=== PATIENT | female | born 1985 | race Two or more races ===

== ENCOUNTER 2019-12-26 18:45 | Emergency (ER) | payer MEDICAID ==
[~2019-12-26] VITALS: Ht 154.9 cm; Wt 72.6 kg
--- NOTE | 2019-12-26 19:08 | NUR ---
L&D TO BE NOTIFIED ONCE IN ROOM.
[2019-12-26 19:28] LABS: BASOPHILS % (AUTO) 0 % (0-1); EOSINOPHILS % (AUTO) 0 % (1-7); LYMPHOCYTES % (AUTO) 33 % (22-44); MEAN CORPUSCULAR HEMOGLOBIN 30.8 pg (27.0-34.8); MEAN CORPUSCULAR HGB CONC 34.4 g/dL (32.4-35.8); MEAN PLATELET VOLUME 8.7 fL (7.4-10.4); MONOCYTES % (AUTO) 10 % (2-9); NEUTROPHILS % (AUTO) 56 % (42-75); PLATELET COUNT 167 x10^3/uL (130-400); RED BLOOD COUNT 4.38 x10^6/uL (3.82-5.3)
[2019-12-26 19:33] LABS: ANION GAP 7 mmol/L (5-15); CALCIUM 8.9 mg/dL (8.5-10.1); CHLORIDE 104 mmol/L (98-107)
[2019-12-26 19:36] LABS: MD NO
--- NOTE | 2019-12-26 19:49 | NUR ---
CALLED L&D TO GET FHT
[2019-12-26 19:51] LABS: CREATININE 0.53 mg/dL (0.55-1.02)
--- NOTE | 2019-12-26 20:00 | NUR ---
L&D RN AT BEDSIDE FOR EVAL
--- NOTE | 2019-12-26 20:04 | NUR ---
"BEEN VOMITING SINCE WEDNESDAY". HAD A FEVER OF 101 ON WEDNESDAY, THIS AM IT WAS 100.9, CLAIMS SHE HAS BEEN AROUND SOMEONE WHO IS POSITIVE WITH COVID-19. PT 22 WEEKS , THIS IS PTS [facility] , 4 CHILDREN.
--- NOTE | 2019-12-26 21:00 | NUR ---
pt resting comfortably. no needs at this time
[2019-12-26 21:43] VITALS: BP 101/61
== END 2019-12-26 21:59 | disposition home or self-care (01) ==
LOC: ED 21:01
DX: O26.892 Other specified pregnancy related conditions, second trimester (principal); B34.9 Viral infection, unspecified; Z3A.22 22 weeks gestation of pregnancy
CPT/HCPCS: 36415; 76815; 80048; 82040; 84702; 85025; 99284

== ENCOUNTER 2020-01-09 10:41 | Outpatient (CLI) | payer MEDICAID ==
[~2020-01-09] VITALS: Ht 154.9 cm; Wt 75.0 kg
[2020-01-09 11:47] VITALS: BP 101/65
[2020-01-09 11:59] LABS: MICROSCOPIC AUTO
[2020-01-09 12:05] LABS: BASOPHILS % (AUTO) 1 % (0-1); EOSINOPHILS % (AUTO) 2 % (1-7); LYMPHOCYTES % (AUTO) 27 % (22-44); MD NO; MEAN CORPUSCULAR HEMOGLOBIN 30.3 pg (27.0-34.8); MEAN CORPUSCULAR HGB CONC 33.7 g/dL (32.4-35.8); MEAN PLATELET VOLUME 7.9 fL (7.4-10.4); MONOCYTES % (AUTO) 6 % (2-9); NEUTROPHILS % (AUTO) 65 % (42-75); PLATELET COUNT 416 x10^3/uL (130-400); RED BLOOD COUNT 4.04 x10^6/uL (3.82-5.3); RED CELL DISTRIBUTION WIDTH 12.9 % (9.6-15.2)
== END 2020-01-09 13:55 | disposition home or self-care (01) ==
LOC: LDOP 10:41
PROVIDERS: ATTEND Obstetrics & Gynecology
DX: O42.912 Preterm premature rupture of membranes, unspecified as to length of time between rupture and onset of labor, second trimester (principal); Z3A.23 23 weeks gestation of pregnancy
CPT/HCPCS: 36415; 81001; 84112; 85025; 87086; 99211; G0463

== ENCOUNTER 2020-01-24 10:13 | Outpatient (CLI) | payer MEDICAID ==
[~2020-01-24] VITALS: Ht 154.9 cm; Wt 75.0 kg
[2020-01-24 11:04] VITALS: BP 97/62
[2020-01-24] MEDS ORDERED: PREN1TAB10 PO (11:17)
== END 2020-01-24 11:30 | disposition home or self-care (01) ==
LOC: LDOP 10:13
PROVIDERS: ATTEND Obstetrics & Gynecology
DX: O46.92 Antepartum hemorrhage, unspecified, second trimester (principal); Z3A.25 25 weeks gestation of pregnancy
CPT/HCPCS: 99211; G0463

== ENCOUNTER 2020-04-02 16:40 | Inpatient (IN) | payer MEDICAID ==
[~2020-04-02] VITALS: Ht 154.9 cm; Wt 82.7 kg
[~2020-04-02 16:40] MED LIST: PREN1TAB10 PO
[2020-04-02] MEDS ORDERED: BETAMETHASONE 6 MG/ML, 5ML IM ONE (16:56)
[2020-04-02] MEDS ORDERED: FENTANYL PF 100 MCG/2ML IVPush PRN (17:00)
[2020-04-02] MEDS ORDERED: FENTANYL PF 100 MCG/2ML IV PRN (17:00)
[2020-04-02] MEDS ORDERED: SODIUM CITRATE/CITRIC ACID 30 ML UDC PO PRN (17:00)
[2020-04-02] MEDS ORDERED: METOCLOPRAMIDE 5 MG/ML, 2ML IVPush PRN (17:00)
[2020-04-02] MEDS ORDERED: TERBUTALINE 1 MG/ML, 1ML SQ PRN (17:00)
[2020-04-02] MEDS: D5%-LACTATED RINGERS 1,000 ML IV SCH (17:00)
[2020-04-02] MEDS ORDERED: TERBUTALINE 1 MG/ML, 1ML IVPush PRN (17:00)
[2020-04-02] MEDS ORDERED: ONDANSETRON 2MG/ML, 2ML IVPush PRN (17:00)
[2020-04-02] MEDS ORDERED: SODIUM CHLORIDE FLUSH 10ML SYR IVF PRN (17:00)
[2020-04-02] MEDS: LACTATED RINGERS 1,000 ML IV SCH (17:00)
[2020-04-02 17:39] LABS: BASOPHILS % (AUTO) 1 % (0-1); EOSINOPHILS % (AUTO) 1 % (1-7); LYMPHOCYTES % (AUTO) 29 % (22-44); MEAN CORPUSCULAR HEMOGLOBIN 30.9 pg (27.0-34.8); MEAN CORPUSCULAR HGB CONC 33.8 g/dL (32.4-35.8); MEAN PLATELET VOLUME 9.5 fL (7.4-10.4); MONOCYTES % (AUTO) 7 % (2-9); NEUTROPHILS % (AUTO) 63 % (42-75); PLATELET COUNT 294 x10^3/uL (130-400); RED BLOOD COUNT 3.97 x10^6/uL (3.82-5.3); RED CELL DISTRIBUTION WIDTH 14.3 % (9.6-15.2)
[2020-04-02 17:43] LABS: MD NO
[2020-04-02] MEDS ORDERED: BUTA1CAP59 PO (17:53)
[2020-04-02] MEDS ORDERED: ACETAMINOPHEN 325 MG TABLET PO PRN (18:00)
[2020-04-02] MEDS ORDERED: BUTALB/APAP/CAFFEINE 50MG/325MG/40MG PO PRN (18:00)
[2020-04-03] MEDS: D5%-LACTATED RINGERS 1,000 ML IV SCH (01:00)
[2020-04-03] MEDS ORDERED: BETAMETHASONE 6 MG/ML, 5ML IM ONE ×2 (09:00→17:00)
[2020-04-03] MEDS ORDERED: PRENATAL VIT/IRON/FA 1 EACH TABLET ONE (09:19)
[2020-04-03] MEDS ORDERED: DOCUSATE 100 MG CAPSULE ONE (09:20)
[2020-04-03] MEDS: DOCUSATE 100 MG CAPSULE PO SCH ×2 (09:21→21:00)
[2020-04-03] MEDS: PRENATAL VIT/IRON/FA 1 EACH TABLET PO SCH (09:22)
[2020-04-03] MEDS ORDERED: BUTALB/APAP/CAFFEINE 50MG/325MG/40MG ONE (16:44)
[2020-04-03] MEDS ORDERED: NEWBORN KIT ONE (23:41)
[2020-04-04] MEDS: PRENATAL VIT/IRON/FA 1 EACH TABLET PO SCH (09:00)
[2020-04-04] MEDS: DOCUSATE 100 MG CAPSULE PO SCH (09:00)
[2020-04-04] MEDS ORDERED: OXYTOCIN 30U/ 0.9% NaCL 500ML 500 ML ONE ×2 (10:18→20:13)
[2020-04-04] MEDS ORDERED: LIDOCAINE 1%, 20ML ONE (10:18)
[2020-04-04] MEDS ORDERED: MISOPROSTOL 200 MCG TABLET ONE (10:18)
[2020-04-04] MEDS ORDERED: MISOPROSTOL 25 MCG TABLET ONE (10:35)
[2020-04-04] MEDS ORDERED: MISOPROSTOL 25 MCG TABLET VG PRN (11:30)
[2020-04-04] MEDS ORDERED: SODIUM CITRATE/CITRIC ACID 15 ML UDC ONE (16:27)
[2020-04-04] MEDS ORDERED: METOCLOPRAMIDE 5 MG/ML, 2ML ONE (16:27)
[2020-04-04] MEDS ORDERED: IBUPROFEN 800 MG TABLET ONE (19:13)
[2020-04-04] MEDS: IBUPROFEN 800 MG TABLET PO PRN (19:14)
[2020-04-04] MEDS: LACTATED RINGERS 1,000 ML IV SCH (19:19)
[2020-04-04] MEDS: OXYTOCIN 30U/ 0.9% NaCL 500ML 500 ML IV SCH (19:20)
[2020-04-04] MEDS ORDERED: OXYTOCIN 10 UNITS/ML, 1ML IM PRN (19:30)
[2020-04-04] MEDS ORDERED: MAGNESIUM HYDROXIDE 8%, 30ML UDC PO PRN (19:30)
[2020-04-04] MEDS ORDERED: CALCIUM CARBONATE 500 MG TAB.CHEW PO PRN (19:30)
[2020-04-04] MEDS ORDERED: ACETAMINOPHEN 325 MG TABLET PO PRN ×2 (19:30)
[2020-04-04] MEDS ORDERED: ONDANSETRON 2MG/ML, 2ML IV PRN (19:30)
[2020-04-04] MEDS ORDERED: METHYLERGONOVINE 0.2 MG/ML IM PRN (19:30)
[2020-04-04] MEDS ORDERED: OXYcodone IR 5MG TABLET PO PRN (19:30)
[2020-04-04] MEDS ORDERED: SIMETHICONE 80 MG CHEW TAB PO PRN (19:30)
[2020-04-04] MEDS ORDERED: DOCUSATE 100 MG CAPSULE PO PRN (19:30)
[2020-04-04] MEDS ORDERED: OXYcodone/APAP 5/325MG TABLET PO PRN (19:30)
[2020-04-04 21:20] VITALS: BP 94/62
[2020-04-05] MEDS: DOCUSATE 100 MG CAPSULE PO SCH ×3 (00:01→22:14)
[2020-04-05 00:38] VITALS: BP 99/62
[2020-04-05 03:26] LABS: BASOPHILS % (AUTO) 0 % (0-1); EOSINOPHILS % (AUTO) 0 % (1-7); LYMPHOCYTES % (AUTO) 19 % (22-44); MEAN CORPUSCULAR HEMOGLOBIN 30.7 pg (27.0-34.8); MEAN CORPUSCULAR HGB CONC 33.6 g/dL (32.4-35.8); MEAN PLATELET VOLUME 9.2 fL (7.4-10.4); MONOCYTES % (AUTO) 7 % (2-9); NEUTROPHILS % (AUTO) 74 % (42-75); PLATELET COUNT 235 x10^3/uL (130-400); RED BLOOD COUNT 3.56 x10^6/uL (3.82-5.3); RED CELL DISTRIBUTION WIDTH 14.3 % (9.6-15.2)
[2020-04-05 03:29] LABS: MD NO
[2020-04-05 04:32] VITALS: BP 97/63
[2020-04-05] MEDS: OXYTOCIN 30U/ 0.9% NaCL 500ML 500 ML IV SCH ×2 (05:30→15:30)
[2020-04-05 08:00] VITALS: BP 100/66
[2020-04-05] MEDS ORDERED: PRENATAL VIT/IRON/FA 1 EACH TABLET PO SCH (09:00)
[2020-04-05] MEDS: PRENATAL VIT/IRON/FA 1 EACH TABLET PO SCH (09:00)
[2020-04-05 12:27] VITALS: BP 104/71
[2020-04-05 19:48] VITALS: BP 101/65
[2020-04-06] MEDS: OXYTOCIN 30U/ 0.9% NaCL 500ML 500 ML IV SCH (01:30)
[2020-04-06 07:30] VITALS: BP 103/68
[2020-04-06] MEDS: PRENATAL VIT/IRON/FA 1 EACH TABLET PO SCH (08:08)
[2020-04-06] MEDS: IBUPROFEN 800 MG TABLET PO PRN (08:08)
[2020-04-06] MEDS ORDERED: IBUP-1222 PO (12:42)
== END 2020-04-06 13:04 | disposition home or self-care (01) | DRG 560 ==
LOC: LDIP 16:41 → 2NW 04-04 20:40
PROVIDERS: ADMIT Obstetrics & Gynecology; ATTEND Obstetrics & Gynecology
PROC: 10E0XZZ Delivery of Products of Conception, External Approach (ICD-10-PCS; principal; 2020-04-04)
DX: O36.5930 Maternal care for other known or suspected poor fetal growth, third trimester, not applicable or unspecified (principal); O42.913 Preterm premature rupture of membranes, unspecified as to length of time between rupture and onset of labor, third trimester; Z37.0 Single live birth; Z3A.35 35 weeks gestation of pregnancy
CPT/HCPCS: 36415; 85025; 86592; 86850; 86900; 87081; 88307; G0378; J0702; J2590; J7120